=== PATIENT | female | born 1935 | race Caucasian/White ===

== ENCOUNTER 2018-04-22 20:57 | Inpatient (IN) | payer MEDICARE, OTHER ==
[~2018-04-22] VITALS: Ht 165.1 cm; Wt 64.5 kg
[~2018-04-22 20:57] MED LIST: DICL100G15 TOP
[2018-04-22 22:09] LABS: BASOPHILS % (AUTO) 0.6 % (0-1); EOSINOPHILS # (AUTO) 0.2 X10'3 (0-0.9); EOSINOPHILS % (AUTO) 4.1 % (0-6); HEMOGLOBIN 14.8 g/dl (12.0-16.0); LYMPHOCYTES # (AUTO) 0.9 X10'3 (1.1-4.8); LYMPHOCYTES % (AUTO) 21.1 % (21-51); MEAN CORPUSCULAR HEMOGLOBIN 30.5 PG (27.0-31.0); MEAN CORPUSCULAR VOLUME 92.5 FL (78-98); MEAN PLATELET VOLUME 9.6 FL (7.4-10.4); MONOCYTES # (AUTO) 0.6 X10'3 (0-0.9); MONOCYTES % (AUTO) 12.7 % (2-12); NEUTROPHILS # (AUTO) 2.7 X10'3 (1.8-7.7); NEUTROPHILS % (AUTO) 61.5 % (42-75); PLATELET COUNT 118 X10'3 (140-440); RED BLOOD COUNT 4.86 X10'6 (4.20-5.60); RED CELL DISTRIBUTION WIDTH 13.7 % (11.5-14.5); WHITE BLOOD COUNT 4.5 X10'3 (4.5-11.0)
[2018-04-22 22:19] LABS: ALANINE AMINOTRANSFERASE 40 U/L (12-78); ALBUMIN 3.8 G/DL (3.4-5.0); ALBUMIN/GLOBULIN RATIO 1.1 (1.1-1.5); ALKALINE PHOSPHATASE 85 IU/L (46-116); ANION GAP 6 (8-16); ASPARTATE AMINO TRANSFERASE 27 U/L (10-37); BILIRUBIN,TOTAL 0.7 MG/DL (0.1-1.0); BLOOD UREA NITROGEN 24 MG/DL (7-18); BUN/CREATININE RATIO 23.3 (6.6-38.0); CALCIUM 9.5 MG/DL (8.5-10.1); CHLORIDE 106 MMOL/L (99-107); CREATININE 1.03 MG/DL (0.40-0.90); GLUCOSE 114 MG/DL (70-104); POTASSIUM 3.7 MMOL/L (3.5-5.1); SODIUM 144 MMOL/L (135-145); TOTAL CARBON DIOXIDE 31.6 MMOL/L (24-32); TOTAL PROTEIN 7.4 G/DL (6.4-8.2); eGFR 51 ML/MIN
[2018-04-22 22:33] LABS: PARTIAL THROMBOPLASTIN TIME 26 SECONDS (22-32)
[2018-04-22] MEDS ORDERED: aspirin 325mg tablet PO ONE (23:15)
[2018-04-22] MEDS ORDERED: NEBI2.5T3 PO (23:35)
[2018-04-22] MEDS ORDERED: ATOR10TA70 PO (23:36)
[2018-04-23] VITALS (11 sets, daily range): BP systolic 105–146; BP diastolic 52–80
[2018-04-23] MEDS ORDERED: acetaminophen 325mg tablet PO PRN (00:15)
[2018-04-23] MEDS ORDERED: ondansetron/PF 4mg/2ml inj IV PRN (00:15)
[2018-04-23] MEDS ORDERED: mag hydrox/Alum hydrox/simeth 30ml oral suspension PO PRN (00:15)
[2018-04-23] MEDS ORDERED: magnesium hydroxide 30ml (MOM) UD suspension PO PRN (00:15)
[2018-04-23 00:52] LABS: HEMOGLOBIN A1C 5.7 % (4.5-6.2)
--- NOTE | 2018-04-23 05:26 | NUR ---
Student Medication Administration: For this medication-pass time frame, all medication were reviewed, dispensed, administered and documented per hospital policy by Chrissy SANTOYO. Student documentation: I have reviewed and agree with all interventions, assessments performed and documented by Chrissy SANTOYO.
--- NOTE | 2018-04-23 06:10 | NUR ---
Problems reprioritized. Patient report given, questions answered & plan of care reviewed with Julieta CABAN.
[2018-04-23] MEDS ORDERED: heparin, porcine 5000 units/ml vial SQ SCH (08:00)
[2018-04-23] MEDS ORDERED: atorvastatin 10mg tablet PO SCH (08:00)
[2018-04-23] MEDS ORDERED: aminophylline 250mg/10ml inj. IV PRN (09:15)
[2018-04-23] MEDS ORDERED: metoprolol tartrate 1mg/ml inj IV PRN (09:15)
[2018-04-23] MEDS ORDERED: regadenoson 0.4mg/5ml syringe IV ONE ×2 (09:15→10:58)
[2018-04-23] MEDS ORDERED: nitroGLYCERIN 0.4mg SUBLingual tab SL PRN (09:15)
[2018-04-23] MEDS ORDERED: pneumococcal 23-VAL P-sac vacc 25 mcg/0.5ml vial IMVAC ONE (10:00)
[2018-04-23] MEDS ORDERED: aminophylline inj. 10 ML IV ONE (10:58)
[2018-04-23] MEDS ORDERED: ASPI81TA52 PO (14:41)
[2018-04-23] MEDS ORDERED: NITR0.4T51 SL (14:41)
--- NOTE | 2018-04-23 15:49 | NUR ---
Patient stable and appropriate for discharge home with daughter. All belongings taken from room. IV removed, monitoring engineer removed. Discharge instructions given. Patient had opportunity to ask questions. New prescriptions called into [facility] in [place].
== END 2018-04-23 16:00 | disposition home or self-care (01) | DRG 303 ==
LOC: ER 20:58 → ED HOLD 04-23 00:11 → PCU 3S 04-23 01:00
PROVIDERS: ADMIT Internal Medicine; ATTEND Family Medicine
PROC: 4A02XM4 Measurement of Cardiac Total Activity, External Approach (ICD-10-PCS; principal; 2018-04-23)
PROC: 3E033HZ Introduction of Radioactive Substance into Peripheral Vein, Percutaneous Approach (ICD-10-PCS; 2018-04-23)
DX: I25.119 Atherosclerotic heart disease of native coronary artery with unspecified angina pectoris (principal); R07.89 Other chest pain; E78.00 Pure hypercholesterolemia, unspecified; E78.5 Hyperlipidemia, unspecified; I10 Essential (primary) hypertension; I25.2 Old myocardial infarction; Z79.82 Long term (current) use of aspirin; Z95.5 Presence of coronary angioplasty implant and graft; Z28.21 Immunization not carried out because of patient refusal; Z91.012 Allergy to eggs; Z91.048 Other nonmedicinal substance allergy status; Z86.718 Personal history of other venous thrombosis and embolism; Z79.899 Other long term (current) drug therapy
CPT/HCPCS: 36415; 71045; 78452; 80053; 83036; 84484; 85025; 85610; 85730; 87070; 90732; 93005; 93017; 93306; 99285; A9500; G0378; J0280; J1644

== ENCOUNTER 2020-04-02 13:10 | Emergency (ER) | payer MEDICARE, OTHER ==
[~2020-04-02] VITALS: Ht 165.1 cm; Wt 65.2 kg
[~2020-04-02 13:10] MED LIST changes: +ASPI81TA52 PO; +ATOR10TA70 PO; -DICL100G15 TOP; +NEBI2.5T3 PO; +NITR0.4T51 SL
[2020-04-02 13:52] LABS: BASOPHILS % (AUTO) 0.4 % (0-1); EOSINOPHILS # (AUTO) 0.1 X10'3 (0-0.9); EOSINOPHILS % (AUTO) 2.4 % (0-6); HEMATOCRIT 45.3 % (35.0-45.0); HEMOGLOBIN 15.2 g/dl (12.0-16.0); LYMPHOCYTES # (AUTO) 0.7 X10'3 (1.1-4.8); MEAN CORPUSCULAR HGB CONC 33.5 g/dL (33.0-36.5); MEAN CORPUSCULAR VOLUME 95.5 FL (78-98); MEAN PLATELET VOLUME 9.8 FL (7.4-10.4); MONOCYTES # (AUTO) 0.5 X10'3 (0-0.9); MONOCYTES % (AUTO) 8.7 % (2-12); NEUTROPHILS # (AUTO) 4.8 X10'3 (1.8-7.7); NEUTROPHILS % (AUTO) 77.5 % (42-75); PLATELET COUNT 122 X10'3 (140-440); RED BLOOD COUNT 4.74 X10'6 (4.20-5.60); WHITE BLOOD COUNT 6.2 X10'3 (4.5-11.0)
[2020-04-02 14:08] LABS: ALANINE AMINOTRANSFERASE 28 U/L (12-78); ALBUMIN 3.9 G/DL (3.4-5.0); ALBUMIN/GLOBULIN RATIO 1.2 (1.1-1.5); ALKALINE PHOSPHATASE 86 IU/L (46-116); ANION GAP 6 (8-16); ASPARTATE AMINO TRANSFERASE 19 U/L (10-37); BLOOD UREA NITROGEN 21 MG/DL (7-18); BUN/CREATININE RATIO 23.3 (6.6-38.0); CALCIUM 9.2 MG/DL (8.5-10.1); CHLORIDE 105 MMOL/L (99-107); GLUCOSE 112 MG/DL (70-104); POTASSIUM 4.6 MMOL/L (3.5-5.1); SODIUM 141 MMOL/L (135-145); TOTAL CARBON DIOXIDE 30.5 MMOL/L (24-32); TOTAL PROTEIN 7.2 G/DL (6.4-8.2); eGFR 60 ML/MIN
[2020-04-02 16:51] VITALS: BP 138/65
== END 2020-04-02 18:07 | disposition home or self-care (01) ==
LOC: ER 13:11
DX: R07.2 Precordial pain (principal); I25.10 Atherosclerotic heart disease of native coronary artery without angina pectoris; E78.00 Pure hypercholesterolemia, unspecified; I25.2 Old myocardial infarction; Z86.718 Personal history of other venous thrombosis and embolism; Z90.89 Acquired absence of other organs; Z91.012 Allergy to eggs; Z88.8 Allergy status to other drugs, medicaments and biological substances; Z79.82 Long term (current) use of aspirin; Z79.899 Other long term (current) drug therapy
CPT/HCPCS: 36415; 71045; 80053; 83880; 84484; 85025; 93005; 99285

== ENCOUNTER 2021-05-05 14:01 | Inpatient (IN) | payer MEDICARE, OTHER ==
[~2021-05-05] VITALS: Ht 165.1 cm; Wt 67.7 kg
[2021-05-05 14:42] LABS: BASOPHILS % (AUTO) 0.6 % (0-1); EOSINOPHILS # (AUTO) 0.1 X10'3 (0-0.9); EOSINOPHILS % (AUTO) 2.3 % (0-6); HEMATOCRIT 44.7 % (35.0-45.0); HEMOGLOBIN 14.9 g/dl (12.0-16.0); LYMPHOCYTES # (AUTO) 1.1 X10'3 (1.1-4.8); LYMPHOCYTES % (AUTO) 18.9 % (21-51); MEAN CORPUSCULAR HEMOGLOBIN 31.6 PG (27.0-31.0); MEAN CORPUSCULAR HGB CONC 33.4 g/dL (33.0-36.5); MEAN CORPUSCULAR VOLUME 94.5 FL (78-98); MONOCYTES # (AUTO) 0.5 X10'3 (0-0.9); MONOCYTES % (AUTO) 8.5 % (2-12); NEUTROPHILS # (AUTO) 3.9 X10'3 (1.8-7.7); NEUTROPHILS % (AUTO) 69.7 % (42-75); PLATELET COUNT 117 X10'3 (140-440); RED BLOOD COUNT 4.73 X10'6 (4.20-5.60); WHITE BLOOD COUNT 5.6 X10'3 (4.5-11.0)
[2021-05-05 14:59] LABS: ALANINE AMINOTRANSFERASE 31 U/L (12-78); ALBUMIN 3.8 G/DL (3.4-5.0); ALBUMIN/GLOBULIN RATIO 1.1 (1.1-1.5); ALKALINE PHOSPHATASE 78 IU/L (46-116); ANION GAP 8 (8-16); ASPARTATE AMINO TRANSFERASE 25 U/L (10-37); BILIRUBIN,TOTAL 1.1 MG/DL (0.1-1.0); BLOOD UREA NITROGEN 22 MG/DL (7-18); BUN/CREATININE RATIO 24.4 (6.6-38.0); CALCIUM 8.8 MG/DL (8.5-10.1); CHLORIDE 105 MMOL/L (99-107); GLUCOSE 96 MG/DL (70-104); SODIUM 144 MMOL/L (135-145); TOTAL CARBON DIOXIDE 30.6 MMOL/L (24-32); TOTAL PROTEIN 7.2 G/DL (6.4-8.2); eGFR 60 ML/MIN
[2021-05-05] MEDS ORDERED: acetaminophen 325mg tablet PO PRN (17:45)
[2021-05-05] MEDS ORDERED: magnesium 2GM in 50ml NS 50 ML IV PRN (17:45)
[2021-05-05] MEDS ORDERED: PERFLUTREN PROTEIN-A MICROSPHR (Optison) 0.22 MG/ML 3ML VIAL IV ONE (17:45)
[2021-05-05] MEDS ORDERED: magnesium Cl slow-release 64mg tablet PO PRN (17:45)
[2021-05-05] MEDS ORDERED: morphine 2 MG/ML inj. syringe IV PRN (17:45)
[2021-05-05] MEDS ORDERED: magnesium 4gm in 100ml NS 100 ML IV PRN (17:45)
[2021-05-05] MEDS ORDERED: ondansetron/PF 4mg/2ml inj IV PRN (17:45)
[2021-05-05] MEDS ORDERED: potassium Cl 20 mEq SR tablet PO PRN ×2 (17:45)
[2021-05-05] MEDS ORDERED: potassium CL 10mEq/100ml bag 100 ML IV PRN (17:45)
[2021-05-05] MEDS ORDERED: ASPI-611 PO (17:52)
[2021-05-05] MEDS ORDERED: NEBI5TAB12 PO (17:52)
[2021-05-05] MEDS ORDERED: NITR0.4T51 SL (17:52)
[2021-05-05] MEDS ORDERED: metoprolol tartrate 1mg/ml inj IV PRN (18:00)
[2021-05-05] MEDS ORDERED: nitroGLYCERIN 0.4mg SUBLingual tab SL PRN (18:00)
[2021-05-05] MEDS ORDERED: regadenoson 0.4mg/5ml syringe IV PRN (18:00)
[2021-05-05] MEDS ORDERED: aminophylline 250mg/10ml inj. IV PRN (18:00)
[2021-05-05 18:45] LABS: MAGNESIUM 2.2 MG/DL (1.5-2.4); POTASSIUM 4.3 MMOL/L (3.5-5.1)
[2021-05-05] MEDS: docusate sod 100mg capsule PO SCH (20:00)
[2021-05-05] MEDS: K and/or MAG REPLACEMENT MC SCH (20:25)
[2021-05-06] VITALS (11 sets, daily range): BP systolic 115–155; BP diastolic 50–67
--- NOTE | 2021-05-06 06:05 | NUR ---
Patient in room PCU 3014. I have received report from Neelam CABAN and had the opportunity to ask questions and assume patient care.
[2021-05-06 06:45] LABS: BASOPHILS % (AUTO) 0.4 % (0-1); EOSINOPHILS # (AUTO) 0.2 X10'3 (0-0.9); EOSINOPHILS % (AUTO) 4.1 % (0-6); HEMATOCRIT 41.8 % (35.0-45.0); HEMOGLOBIN 13.9 g/dl (12.0-16.0); LYMPHOCYTES # (AUTO) 1.1 X10'3 (1.1-4.8); LYMPHOCYTES % (AUTO) 27.9 % (21-51); MEAN CORPUSCULAR HEMOGLOBIN 31.3 PG (27.0-31.0); MEAN CORPUSCULAR HGB CONC 33.3 g/dL (33.0-36.5); MEAN PLATELET VOLUME 9.7 FL (7.4-10.4); MONOCYTES # (AUTO) 0.5 X10'3 (0-0.9); MONOCYTES % (AUTO) 11.9 % (2-12); NEUTROPHILS # (AUTO) 2.1 X10'3 (1.8-7.7); NEUTROPHILS % (AUTO) 55.7 % (42-75); PLATELET COUNT 98 X10'3 (140-440); RED BLOOD COUNT 4.44 X10'6 (4.20-5.60); RED CELL DISTRIBUTION WIDTH 12.8 % (11.5-14.5); WHITE BLOOD COUNT 3.8 X10'3 (4.5-11.0)
[2021-05-06 06:48] LABS: ALBUMIN 3.2 G/DL (3.4-5.0); ANION GAP 1 (8-16); BLOOD UREA NITROGEN 22 MG/DL (7-18); BUN/CREATININE RATIO 27.2 (6.6-38.0); CALCIUM 8.5 MG/DL (8.5-10.1); CHLORIDE 107 MMOL/L (99-107); CREATININE 0.81 MG/DL (0.40-0.90); GLUCOSE 83 MG/DL (70-104); MAGNESIUM 2.1 MG/DL (1.5-2.4); POTASSIUM 4.1 MMOL/L (3.5-5.1); SODIUM 140 MMOL/L (135-145); TOTAL CARBON DIOXIDE 32.2 MMOL/L (24-32); eGFR 67 ML/MIN
[2021-05-06] MEDS: docusate sod 100mg capsule PO SCH (08:00)
[2021-05-06] MEDS: K and/or MAG REPLACEMENT MC SCH (08:00)
[2021-05-06] MEDS ORDERED: aminophylline 500mg/20ml vial ONE (08:48)
[2021-05-06] MEDS ORDERED: atorvastatin 10mg tablet PO SCH (10:20)
[2021-05-06] MEDS ORDERED: aspirin 81mg, enteric-coated 1 TAB TABLET.DR PO SCH (10:20)
[2021-05-06] MEDS ORDERED: metoprolol tartrate 25mg tablet PO SCH (10:20)
--- NOTE | 2021-05-06 16:05 | NUR ---
Patient stable for discharge per Dr. Bhardwaj and Dr. Greene orders. All discharge instructions reviewed with patient and all questions answered. PIV discontinued, cannula intact. Tele Discontinued. All belongings collected and sent with patient. Wheeled to lobby via nursing staff and picked up by friend.
== END 2021-05-06 14:35 | disposition home or self-care (01) | DRG 303 ==
LOC: ER 14:02 → ED HOLD 17:54 → PCU 3S 22:15
PROVIDERS: ADMIT Internal Medicine; ATTEND Internal Medicine
PROC: 4A02XM4 Measurement of Cardiac Total Activity, External Approach (ICD-10-PCS; principal; 2021-05-06)
PROC: 3E033HZ Introduction of Radioactive Substance into Peripheral Vein, Percutaneous Approach (ICD-10-PCS; 2021-05-06)
DX: I25.119 Atherosclerotic heart disease of native coronary artery with unspecified angina pectoris (principal); E78.00 Pure hypercholesterolemia, unspecified; E78.5 Hyperlipidemia, unspecified; I10 Essential (primary) hypertension; I25.2 Old myocardial infarction; Z86.718 Personal history of other venous thrombosis and embolism; Z87.891 Personal history of nicotine dependence; Z95.5 Presence of coronary angioplasty implant and graft; Z88.8 Allergy status to other drugs, medicaments and biological substances; Z91.012 Allergy to eggs; Z79.899 Other long term (current) drug therapy; Z79.82 Long term (current) use of aspirin
CPT/HCPCS: 36415; 71045; 78452; 80048; 80053; 83735; 84132; 84484; 85025; 93005; 93017; 93306; 99285; A9500; G0378; J0280; J2785

== ENCOUNTER 2023-05-11 11:20 | Emergency (ER) | payer MEDICARE, OTHER ==
[~2023-05-11] VITALS: Ht 165.1 cm; Wt 65.9 kg
[~2023-05-11 11:20] MED LIST changes: +ASPI-611 PO; -ASPI81TA52 PO; -NEBI2.5T3 PO; +NEBI5TAB12 PO
[2023-05-11 11:36] LABS: BASOPHILS % (AUTO) 0.5 % (0-1); EOSINOPHILS % (AUTO) 0.6 % (0-6); HEMATOCRIT 43.9 % (35.0-45.0); HEMOGLOBIN 14.6 g/dl (12.0-16.0); LYMPHOCYTES # (AUTO) 0.6 X10'3 (1.1-4.8); LYMPHOCYTES % (AUTO) 10.9 % (21-51); MEAN CORPUSCULAR HEMOGLOBIN 30.8 PG (27.0-31.0); MEAN CORPUSCULAR HGB CONC 33.4 g/dL (33.0-36.5); MEAN CORPUSCULAR VOLUME 92.3 FL (78-98); MEAN PLATELET VOLUME 9.8 FL (7.4-10.4); MONOCYTES # (AUTO) 0.5 X10'3 (0-0.9); MONOCYTES % (AUTO) 8.9 % (2-12); NEUTROPHILS # (AUTO) 4.3 X10'3 (1.8-7.7); NEUTROPHILS % (AUTO) 79.1 % (42-75); PLATELET COUNT 131 X10'3 (140-440); RED BLOOD COUNT 4.75 X10'6 (4.20-5.60); RED CELL DISTRIBUTION WIDTH 14.1 % (11.5-14.5); WHITE BLOOD COUNT 5.4 X10'3 (4.5-11.0)
[2023-05-11 12:00] LABS: ALBUMIN 3.7 G/DL (3.4-5.0); ANION GAP 3 (8-16); BLOOD UREA NITROGEN 24 MG/DL (7-18); BUN/CREATININE RATIO 22.9 (10.0-20.0); CALCIUM 8.8 MG/DL (8.5-10.1); CHLORIDE 107 MMOL/L (99-107); CREATININE 1.05 MG/DL (0.40-0.90); GLUCOSE 103 MG/DL (70-104); POTASSIUM 4.2 MMOL/L (3.5-5.1); PRO BRAIN NATRIURETIC PEPTIDE 155 PG/ML (0-450); SODIUM 141 MMOL/L (135-145); TOTAL CARBON DIOXIDE 31.1 MMOL/L (24-32); eGFR 50 ML/MIN
[2023-05-11] MEDS ORDERED: ALBU8HFA INH (16:33)
[2023-05-11 16:34] VITALS: BP 152/62; PULSE 58; RESP 16; TEMP 98.6; O2SAT 95
== END 2023-05-11 17:08 | disposition home or self-care (01) ==
LOC: ER 11:20
DX: R07.9 Chest pain, unspecified (principal); I25.10 Atherosclerotic heart disease of native coronary artery without angina pectoris; I10 Essential (primary) hypertension; E78.00 Pure hypercholesterolemia, unspecified; Z86.718 Personal history of other venous thrombosis and embolism; Z90.49 Acquired absence of other specified parts of digestive tract; Z98.890 Other specified postprocedural states
CPT/HCPCS: 36415; 71045; 80048; 83880; 84484; 85025; 93005; 99285